=== PATIENT | male | born 1945 | race Caucasian/White ===

== ENCOUNTER 2023-02-10 10:20 | Day surgery (SDC) | payer MEDICARE, MEDICAID, SELFPAY ==
[2023-02-10 10:56] VITALS: BP 161/79; PULSE 61; RESP 16; TEMP 36.6; O2SAT 98
[2023-02-10] MEDS: Tropicam./Phenyleph. (1/2.5%) 5 ML BTL OD ×3 (11:12→11:24)
--- NOTE | 2023-02-10 11:34 | W.ANESPRE ---
General Info Date of Service Date Performed: 02/10/23 Height: 5 ft 9 in Weight: 73.1 kg Body Mass Index (BMI): 23.8 Surgical Procedure: Operation Date: 02/10/23 13:40 Proposed Procedure Side Surgeon p Cataract Extraction with IOL Implant Right Aurelio Romo MD Meds Allergies and Home Medications Allergies Allergy/AdvReac Type Severity Reaction Status Date / Time rosuvastatin [From Crestor] AdvReac Intermediate Myalgia Verified 02/10/23 11:03 simvastatin AdvReac Intermediate Myalgia Verified 02/10/23 11:03 SSRI's AdvReac Intermediate Sexual Uncoded 02/09/23 10:34 Per H&P unspecfied rx Home Medication Medication Instructions Recorded acetaminophen 325 mg tablet 650 mg PO Q4H 02/08/23 betamethasone dipropionate 0.05 % 1 applic topical BID 02/08/23 topical cream fluoxetine 20 mg tablet 20 mg PO DAILY 02/08/23 Current Visit Medications: Current Medications Generic Name Dose Route Start Last Admin Trade Name Freq PRN Reason Stop Dose Admin Acetaminophen 1,000 mg 02/10/23 06:00 Acetaminophen 500 Mg Tab PO 03/12/23 05:59 Q4H PRN PRN Balanced Salt Solution 500 ml 02/10/23 06:00 Balanced Salt Soln.-Plus 500 Ml Bag OP 03/12/23 05:59 DIRECTED ROSA Miscellaneous Medication 0 ml 02/10/23 06:00 Prednisolone 1%, Moxifloxacin 0.5%, Nepafenac 0.1% 5ml Btl OD 03/12/23 05:59 DIRECTED ROSA Miscellaneous Medication 0 ml 02/10/23 06:00 02/10/23 11:24 Tropicam./Phenyleph. (1/2.5%) 5 Ml Btl OD 03/12/23 05:59 1 drp DIRECTED ROSA Administration Tetracaine HCl 0 ml 02/10/23 06:00 Tetracaine 0.5% 4 Ml Btl OD 03/12/23 05:59 DIRECTED ROSA PFSH Active Problems Active Problems: Problem Status Onset Code Cortical age-related cataract, right eye H25.011 Posterior subcapsular age-related cataract, right eye H25.041 Nuclear age-related cataract, right eye H25.11 Medical History Medical History Arthritis of left knee ASCVD (arteriosclerotic cardiovascular disease) BPH (benign prostatic hyperplasia) History of depression HLD (hyperlipidemia) Irritable bowel syndrome with diarrhea Surgical History Surgical History Hx of heart artery stent 2004. Pt. was discharged from their care pt .states he hikes and bike and canoe Tobacco Smoking/Tobacco Use Status: Former Tobacco Use Alcohol Alcohol Intake: never Substance Use Substance use: Never Substance use type: does not use Vital Signs and Lab Results Vital Signs Most Recent Vital Signs in EMR: Most Recent Vital Signs Temp Pulse Resp BP Pulse Ox 36.6 C 61 16 161/79 H 98 02/10/23 10:56 02/10/23 10:56 02/10/23 10:56 02/10/23 10:56 02/10/23 10:56 Lab Results Blood Type / Crossmatch: No Data to Display Complete Blood Count: No Data to Display Complete Metabolic Panel: No Data to Display Liver Function Panel: No Data to Display Coagulation Panel: No Data to Display Cardiac Panel: No Data to Display Arterial Blood Gas: No Data to Display Venous Blood Gas: No Data to Display Pancreas Panel: No Data to Display Thyroid Panel: No Data to Display Infectious Disease: No Data to Display Blood Cultures: No Data to Display Toxicology Panel: No Data to Display Anesthesia Assessment and Plan Anesthesia History Personal History: No History of Anesthesia Complications Family History: No Family History of Anesthesia Complications Exercise Tolerance Exercise Tolerance: Metabolic Equivalents>4 Pertinent Negatives Pertinent Negatives: No Symptoms of GERD, No Major Cardiovascular Symptoms or Complaints and No Major Pulmonary Symptoms or Complaints Cardiac & Pulmonary Exam Cardiac Exam: Normal S1/S2 Heart Sounds Pulmonary Exam: Clear Bilateral Breath Sounds Implantable Cardiac Device Does patient have a Pacemaker or an ICD?: No Airway Exam Known Difficult Airway: No Mallampati Class: 2 Mouth Opening: Normal (> 3cm) Thyromental Distance: Greater than 3 cm Neck Range of Motion: Full ROM Neck Circumference: Normal Teeth Condition: Removable Dentures/Plates Upper, Removable Dentures/Plates Lower and Edentulous ASA Classification ASA Score: ASA 2 Emergency Case?: No NPO Status NPO Status: NPO Clears >2 hours, Solids >8 hours Anesthesia Plan Resuscitation Status: Full Code Anesthesia Technique: MAC Anesthesia Airway Planned: Natural Airway Monitors Used: Standard Monitors
[2023-02-10 12:01] VITALS: BMI 23.8
[2023-02-10] MEDS: Balanced Salt Soln.-PLUS 500 ML BAG OP (13:09)
[2023-02-10] MEDS: Tetracaine 0.5% 4 ML BTL OD (13:10)
[2023-02-10] MEDS: Duovisc Viscoelastic System EACH 1 EACH (13:10)
[2023-02-10] MEDS: Phenylephrine/Lidocaine (15/10) MG/ML 1 ML VIAL (13:11)
[2023-02-10] MEDS: Lidocaine 1% Pres-Free 5 ML VIAL (13:11)
[2023-02-10] MEDS: Povidone-Iodine Ophth 30 ML BTL (13:12)
[2023-02-10 13:15] VITALS: BP 184/74; PULSE 61; RESP 16; TEMP 36.5; O2SAT 98
--- NOTE | 2023-02-10 13:16 | PDOC.DSDIS_ITS ---
Date of service: 02/10/23 Time of Service: 13:16 Discharge Plan Disposition Patient Disposition: Home Discharge Details Attending Provider: Aurelio Romo Primary Care Provider: Hector Bashir [place] Meds and New Rx's Prescriptions: No Action acetaminophen 325 mg Tablet 650 mg PO Q4H fluoxetine 20 mg Tablet 20 mg PO DAILY betamethasone dipropionate 0.05 % Cream 1 applic TOPICAL BID Discharge Instructions Stand Alone Forms: Post-op Topical Cataract, Jose Juan Prater (DSU) Discharge Orders Discharge Orders: Discharge Order (Routine); Ordered 02/10/23 Ordered By: Aurelio Romo DS: Diagnosis Discharge Diagnosis (1) Cortical age-related cataract, right eye: Status: Resolved (2) Posterior subcapsular age-related cataract, right eye: Status: Resolved (3) Nuclear age-related cataract, right eye: Status: Resolved
--- NOTE | 2023-02-10 13:16 | W.PM.OP ---
Date of service: 02/10/23 Time of Service: 13:16 Operative Note Operative Note DATE OF PROCEDURE: 02/10/23 PRE-OP DIAGNOSIS: Nuclear/cortical/posterior subcapsular cataract, right eye POST-OP DIAGNOSIS: same PROCEDURE: Cataract extraction using phacoemulsification with intraocular lens implant, right eye SURGEON: Aurelio Romo ANESTHESIA TYPE: Local By Surgeon and MAC Refer to Anesthesia Record ESTIMATED BLOOD LOSS: 0 PATHOLOGY: none sent COMPLICATIONS: None Patient was transported to: same day Patient's condition: stable Implants: Kevin Clareon [id number] Indications: Progressive decreased vision due to cataract, right eye Procedure Description: CATARACT SURGERY OPERATIVE REPORT PREOPERATIVE DIAGNOSIS: Nuclear/cortical/posterior subcapsular cataract, right eye POSTOPERATIVE DIAGNOSIS: Same OPERATION: Cataract extraction using phacoemulsification with posterior chamber intraocular lens implant, right eye. IOL: IOL Cigarette Maker/Model: Kevin Clareon [id number] IOL Power: + 21.5 diopters IOL Serial Number: [id number] Optic Diameter: 6.0mm Haptic/Overall Diameter: 13.0mm PHACO INFO: Kevin Solar Roadwaysurion Vision System with OZil and Active Fluidics Cumulative Dispersed Energy (CDE): 9.33 seconds SURGEON: Aurelio Romo MD, LINDA ANESTHESIA: Monitored Anesthesia Care (MAC), with local sub-tenon's anesthetic infiltration COMPLICATIONS: None SPECIMENS: None INDICATIONS FOR PROCEDURE: The patient is a 77-year-old gentleman with history of diminished visual acuity in his right eye secondary to the development of nuclear/cortical/posterior subcapsular cataract. He is significantly symptomatic that he desires cataract surgery and attempt to improve and maximize his vision. The option of cataract surgery was offered to the patient and he wished to proceed. See office notes for detailed information. PROCEDURE: The correct surgical eye was identified and marked as the right eye and the pupil was dilated in the preoperative area using mydriatics and cycloplegics. The dilated pupil size was 5.0 mm. The patient elected to proceed without oral sedation. The patient was brought to the operating room where cardiopulmonary monitoring was instituted and surgical time-out was performed, confirming the correct operative eye and IOL power. Topical anesthesia was administered and ophthalmic povidone-iodine 5% was instilled into the conjunctival fornices. The manohar-ocular area was prepped with Betadine 10% solution and draped in the usual sterile fashion for intraocular surgery, including an aperture drape. A Tegaderm transparent film dressing was cut in half and used to cover the lashes and lid margins. Care was taken to sequester the lashes and lid margins under the Tegaderm dressing. A lid speculum was placed between the lids of the operative eye and the Janelle-Krissy operating microscope was maneuvered into position. Karoline scissors were then used to make a conjunctival buttonhole approximately 6mm posterior to the limbus in the inferonasal quadrant. Blunt dissection was carried out to expose bare sclera, and a blunt-tipped sub-tenon?s anesthesia cannula was introduced and passed posteriorly along the globe where non-preserved plain lidocaine was injected into posterior sub-Tenon?s space. A sideport knife was used to make a paracentesis port. Intraocular phenylephrine/lidocaine was injected into the anterior chamber. The anterior chamber was then filled with viscoelastic. A keratome knife was used to construct a two--plane clear corneal tunnel extending 2.0mm into clear cornea. A flap was raised on the anterior capsule and capsulorhexis forceps were used to complete a continuous curvilinear capsulorhexis of 5.0 mm. Balanced salt solution was then used to perform cortical cleaving hydrodissection and nuclear hydrodelineation until the lens could be freely rotated within the capsular bag. The lens nucleus was then disassembled and removed within the capsular bag and iris plane using phacoemulsification. Residual cortical material was removed using the I/A handpiece. The posterior capsule was carefully polished to remove as much residual lens epithelial cells as safely possible. The capsular bag was then inflated and the anterior chamber deepened with cohesive viscoelastic. The lens implant described above was inserted into the capsular bag using the Kevin Autonome Injector. A Kuglen hook was used to dial the IOL into position. Residual viscoelastic was then removed first from posterior to the IOL, then from the anterior chamber using the I/A handpiece. The lens implant was noted to center nicely within the capsular bag. The incisions were stromally hydrated, and the anterior chamber was reformed using BSS. Then 0.5cc of moxifloxacin 1.0mg/ml were injected into the capsular bag and anterior chamber. The incisions were checked with a Weck spear and found to be secure. Several drops of ophthalmic povidone-iodine 5% were then applied to the eye followed by two drops of Imprimis combination prednisolone/moxifloxacin/nepafenac solution. The drapes were removed and a clear plastic protective eye shield was placed over the eye. The patient was then returned to [facility] in stable condition.
--- NOTE | 2023-02-10 13:59 | W.ANESPOSTOP ---
Postoperative Evaluation Date, Time and Location Date Performed: 02/10/23 Time Performed: 13:22 Patient Location: Day Surgery Unit Vital Signs Most Recent Imported Vital Signs: Most Recent Vital Signs Temp Pulse Resp BP Pulse Ox 36.5 C 61 16 184/74 H 98 02/10/23 13:15 02/10/23 13:15 02/10/23 13:15 02/10/23 13:15 02/10/23 13:15 Pain Score Most Recent Pain Score: Most Recent Pain Score Pain Level 0 02/10/23 13:15 Assessment Mental Status: Awake (Alert & Oriented to Patient Baseline) Airway and Respiratory Function: Patent airway with normal (patient baseline) respiratory exam Cardiovascular Function: Hemodynamically Stable Hydration Status: Adequately Hydrated Nausea & Vomiting: No Nausea or Vomiting Pain: Pt. Denies Any Pain Peripheral Nerve Block: Patient did not receive a nerve block
== END 2023-02-10 13:50 | disposition home or self-care (01) ==
PROVIDERS: PCP Family Medicine; Visit Provider Ophthalmology
PROC: (CPT 66984; principal; 2023-02-10 13:30)
DX: H25.011 Cortical age-related cataract, right eye (principal); H25.041 Posterior subcapsular polar age-related cataract, right eye; H25.11 Age-related nuclear cataract, right eye; I25.10 Atherosclerotic heart disease of native coronary artery without angina pectoris
CPT/HCPCS: 66984; V2632